=== PATIENT | female | born 1955 | race Caucasian/White ===

== ENCOUNTER 2021-08-19 06:35 | Day surgery (SDC) | payer BC, MEDICAID ==
[2021-08-19] MEDS ORDERED: Midazolam 1 MG/ML 2 ML SDV ONE (07:17)
[2021-08-19] MEDS ORDERED: Propofol 200 MG/20 ML SDV ONE (07:17)
[2021-08-19] MEDS ORDERED: fentaNYL 100 MCG/2 ML SDV ONE (07:17)
[2021-08-19] MEDS ORDERED: Sodium Chloride 0.9% 1,000 ML IV SCH (07:30)
--- NOTE | 2021-08-19 10:12 | OR ---
DATE OF PROCEDURE: 08/19/2021 SURGEON: Lj Hernandez MD PROCEDURE: Colonoscopy. FINDINGS: 1. Sigmoid colon polyp, approximately 5 mm, completely removed using cold biopsy forceps. 2. Descending colon polyp, approximately 5 mm, completely removed using cold biopsy forceps. 3. Diverticulosis, mild to moderate, mostly limited to sigmoid colon without evidence of diverticulitis or bleeding. PREOPERATIVE DIAGNOSIS: Screening colonoscopy. POSTOPERATIVE DIAGNOSIS: Screening colonoscopy. RISKS: Risks, benefits, alternatives, and limitations including, but not limited to infection, bleeding, perforation, false positives and false negatives were explained to the patient who wished to proceed. PROCEDURE IN DETAIL: The patient was placed in left lateral decubitus position. Digital rectal exam was performed without abnormality. Scope was introduced and advanced atraumatically to the ileocecal valve. A photo was taken. The scope was brought back to the ascending, transverse, descending colon, and retroflexed. The aforementioned polyps were identified and completely removed. No abnormal bleeding was noted after removal. The diverticulosis was described as mild, limited to sigmoid colon without evidence of diverticulitis or bleeding. There was some diverticula throughout the colon, but mostly concentrated in a classic pattern. No abnormalities on retroflexion. Grade than 8 minutes was spent removing the scope. Prep was marginal, approximately 85% to 90% of luminal surface could be seen. The patient did have some solid and liquid stool remaining, suction and irrigation techniques were used to optimize this. The patient tolerated the procedure well. Lj Hernandez MD /[id number]
== END 2021-08-19 09:50 | disposition home or self-care (01) ==
LOC: JP.SDS 06:35
PROVIDERS: ATTEND Surgery
DX: D12.4 Benign neoplasm of descending colon (principal); K57.30 Diverticulosis of large intestine without perforation or abscess without bleeding; I10 Essential (primary) hypertension; E66.9 Obesity, unspecified
CPT/HCPCS: 45380; J2250; J2704; J3010; J7030; 88305

== ENCOUNTER 2024-08-29 15:01 | Emergency (ER) | payer OTHER ==
[2024-08-29] MEDS: HYDROmorphone 0.5 MG/0.5 ML Syringe IVPUSH ONE (15:13)
[2024-08-29] MEDS ORDERED: Propofol 200 MG/20 ML SDV ONE (16:41)
== END 2024-08-29 17:59 | disposition home or self-care (01) ==
LOC: JP.ED 15:01
DX: T84.020A Dislocation of internal right hip prosthesis, initial encounter (principal); I10 Essential (primary) hypertension; Z79.82 Long term (current) use of aspirin; Z79.899 Other long term (current) drug therapy; X50.1XXA Overexertion from prolonged static or awkward postures, initial encounter
CPT/HCPCS: 27265; 73501; 96374; 99283; J1171; J2704; 99284

== ENCOUNTER 2024-09-07 01:39 | Emergency (ER) | payer MEDICARE, OTHER ==
[2024-09-07] MEDS: Morphine 2 MG/ML SYRINGE IVPUSH ONE (02:15)
[2024-09-07] MEDS ORDERED: Propofol 200 MG/20 ML SDV ONE (03:08)
[2024-09-07] MEDS: Ibuprofen 600 MG Tab PO ONE (06:03)
== END 2024-09-07 07:25 | disposition home or self-care (01) ==
LOC: JP.ED 01:39
DX: T84.020A Dislocation of internal right hip prosthesis, initial encounter (principal); I10 Essential (primary) hypertension; Z86.16 Personal history of COVID-19; Z96.649 Presence of unspecified artificial hip joint; Z79.82 Long term (current) use of aspirin; Z79.899 Other long term (current) drug therapy; X50.1XXA Overexertion from prolonged static or awkward postures, initial encounter
CPT/HCPCS: 27252; 27265; 72170; 73501; 96374; 99284; A9270; J2270; J2704